=== PATIENT | male | born 1960 | race Caucasian/White ===

== ENCOUNTER → 2024-11-04 | Outpatient (CLI) | payer OTHER ==
--- NOTE | 2024-11-06 09:36 | US ---
EXAMINATION TYPE: US carotid duplex BILAT DATE OF EXAM: 11/04/2024 COMPARISON: NONE CLINICAL INDICATION: Male, 64 years old with history of I65.29 OCCLUSION AND STENOSIS OF UNSPECIFIED CAROT; Left endarterectomy 4 years ago. headaches Additional History: .... TECHNIQUE: Grayscale, color Doppler and spectral Doppler evaluation of the bilateral carotid systems and vertebral arteries. Indirect Doppler criteria was utilized. FINDINGS: EXAM MEASUREMENTS: RIGHT: Peak Systolic Velocity (PSV) cm/sec ----- Right CCA: 57.6 ----- Right ICA: 103 ----- Right ECA: 401 ICA/CCA ratio: 1.79 RIGHT: End Diastole cm/sec ----- Right CCA: 15.9 ----- Right ICA: 27.3 ----- Right ECA: 124 LEFT: Peak Systolic Velocity (PSV) cm/sec ----- Left CCA: 108 ----- Left ICA: 92.2 ----- Left ECA: 153 ICA/CCA ratio: 0.87 LEFT: End Diastole cm/sec ----- Left CCA: 19.5 ----- Left ICA: 11.0 ----- Left ECA: 11.8 VERTEBRALS (direction of flow): Right Vertebral: Antegrade Left Vertebral: Antegrade Rhythm: Normal [employer] NOTES: Mild plaque bilateral bifurcations. Increased velocities right ECA and left ECA, g reater on the right Color Doppler imaging shows patency with blood flow throughout the carotid artery. Spectral waveforms are within normal limits. IMPRESSION: 1. Mild to moderate plaque in the carotid bifurcations bilaterally. 2. Based on systolic velocities and ratios as well as color and grayscale imaging there are less than 50% stenoses in the proximal internal carotid arteries bilaterally. Criteria for Assigning % of Stenosis / Diameter reduction (Estimation based on the indirect measurements of the internal carotid artery velocities (ICA PSV). 1. Normal (no stenosis)=ICA PSV < 180 cm/s: ratio < 2.0: ICA EDV<40 cm/s. 2. Less than 50% stenosis=ICA PSV < 180 cm/s: ratio < 2.0: ICA EDV<40 cm/s. 3. 50 to 69% stenosis=ICA PSV of 180 to 230 cm/s: ration 2.0 ? 4.0: ICA EDV 40-100 cm/s. PSV 125-180 cm/sec and ICA/CCA PSV Ratio ? 2.0 is also consistent with 50-69% stenosis 4. Greater than 70% stenosis to near occlusion= ICA PSV > 230 cm/s: ratio > 4.0: ICA EDV > 100 cm/s. 5. Near occlusion= ICA PSV velocities may be low or undetectable: variable ratio and ICA EDV. 6. Total occlusion=unable to detect flow. [facility], Workstation: TRELL 11/06/2024 9:34 AM
== END | disposition home or self-care (01) ==
LOC: RADUSWWP 15:18
PROVIDERS: ATTEND Family Medicine
DX: I65.23 Occlusion and stenosis of bilateral carotid arteries (principal)
CPT/HCPCS: 93880